=== PATIENT | male | born 1995 | race African-American/Black ===

== ENCOUNTER 2017-08-13 11:36 | Emergency (ER) | payer OTHER ==
[~2017-08-13] VITALS: Ht 180.3 cm; Wt 72.6 kg
[2017-08-13 11:57] LABS: URINE BILIRUBIN NEGATIVE (Negative); URINE BLOOD NEGATIVE (Negative); URINE CLARITY CLEAR; URINE COLOR YELLOW; URINE GLUCOSE-RANDOM* NEGATIVE (Negative); URINE KETONES NEGATIVE (Negative); URINE LEUKOCYTES-REFLEX NEGATIVE (Negative); URINE NITRITE-REFLEX NEGATIVE (Negative); URINE PROTEIN (DIPSTICK) TRACE (Negative); URINE SPECIFIC GRAVITY >= 1.030 (1.005-1.035); URINE UROBILINOGEN 0.2 E.U./dl (0.2-1.0)
== END 2017-08-13 12:21 | disposition home or self-care (01) ==
LOC: ER 11:36
PROVIDERS: Emergency Medicine
DX: Z20.2 Contact with and (suspected) exposure to infections with a predominantly sexual mode of transmission (principal)

== ENCOUNTER 2018-06-04 20:24 | Emergency (ER) | payer OTHER ==
[~2018-06-04] VITALS: Ht 170.2 cm; Wt 68.0 kg
[2018-06-04] MEDS ORDERED: NAPROSYN500 MG PO (21:53)
[2018-06-04 22:32] VITALS: BP 98/54
== END 2018-06-04 22:33 | disposition home or self-care (01) ==
LOC: ER 20:24
DX: G89.29 Other chronic pain (principal); R10.9 Unspecified abdominal pain; F32.9 Major depressive disorder, single episode, unspecified

== ENCOUNTER 2018-10-13 17:27 | Inpatient (IN) | payer OTHER ==
[~2018-10-13] VITALS: Ht 170.2 cm; Wt 68.0 kg
[~2018-10-13 17:27] MED LIST: NAPROSYN500 MG PO
[2018-10-13 18:16] VITALS: BP 134/83
--- NOTE | 2018-10-13 18:18 | NUR ---
PT HAS BEEN WAITING IN THE LOBBY FOR TRIAGE. INITIAL SET OF VS WHEN PT ARRIVED WAS TEMP: 98.6, HR: 107; BP: 136/80; SPO2: 99% ON ROOM AIR. WILL CONTINUE TO MONITOR AND INTERVENE PRN
[2018-10-13 20:13] LABS: URINE BILIRUBIN 1+ (Negative); URINE BLOOD NEGATIVE (Negative); URINE CLARITY CLEAR; URINE COLOR YELLOW; URINE GLUCOSE-RANDOM* NEGATIVE (Negative); URINE KETONES 3+ (Negative); URINE LEUKOCYTES-REFLEX NEGATIVE (Negative); URINE NITRITE-REFLEX NEGATIVE (Negative); URINE PROTEIN (DIPSTICK) 1+ (Negative); URINE SPECIFIC GRAVITY >= 1.030 (1.005-1.035); URINE UROBILINOGEN 0.2 E.U./dl (0.2-1.0)
[2018-10-13 20:34] LABS: HEMATOCRIT 46.4 % (42.0-52.0); HEMOGLOBIN 15.9 gm/dL (14.0-18.0); MCH 34.4 pg (26.0-34.0); MCHC 34.3 g/dL (28.0-37.0); MCV 100.2 fL (80.0-100.0); PLATELET COUNT 153 thou/uL (150-400); RBC 4.63 mil/uL (4.50-6.00); RDW 12.4 % (10.5-14.5); WBC 6.8 thou/uL (4.0-11.0)
[2018-10-13 20:41] LABS: CREATININE 0.8 mg/dL (0.7-1.3); POTASSIUM 4.7 mmol/L (3.5-5.1)
[2018-10-13 20:47] LABS: ALBUMIN 4.6 g/dL (3.4-5.0); TOTAL BILIRUBIN 1.1 mg/dL (<0.1-1.0); TOTAL PROTEIN 9.2 g/dL (6.4-8.2)
[2018-10-13 21:07] LABS: ABSOLUTE NEUTROPHILS 5.4 thou/uL (1.4-8.2)
[2018-10-13 21:08] LABS: ANISOCYTOSIS 1+; POLYCHROMASIA OCCASIONAL
[2018-10-13 22:16] VITALS: BP 130/87
[2018-10-13 23:34] VITALS: BP 125/79
[2018-10-14 00:15] VITALS: BP 118/74
[2018-10-14 01:19] LABS: LIPASE 1319 U/L (73-393); MAGNESIUM 1.9 mg/dL (1.8-2.4)
[2018-10-14 01:19] LABS: AMP/METHAMP Negative (Negative); BARBITURATES Negative (Negative); BENZODIAZEPINES Negative (Negative); COCAINE Negative (Negative); METHADONE Negative (Negative); OPIATES Negative (Negative); PCP Negative (Negative)
--- NOTE | 2018-10-14 02:10 | NUR ---
ADMITTED FROM ER UNDER 'S CARE. ADMITTING DX PANCREATITIS. AXOX4. CIWA SCORE AT 0 UPON ADMISSION. ABDOMEN SOFT AND NON TENDER PAIN TO RUQ WITH PALPATION. HYPOACTIVE BOWEL SOUNDS. PER PT, DIARRHEA HAS CEASED SINCE ER ADMISSION. PERSISTENT PAIN TREATED PER MD ORDER. BLOOD GLUCOSE NOTED LOW. REPORTED AT [facility] REPORTER FOR KATIE, IVF ON D5NS1/2 INITIATED. IV ATB CIPRO AND FLAGYL ADMIN. MILD ITCHYING REPORTED PER PT. REPORTED TO [employer] AND RECEIVED AN ORDER FOR BENADRYL. NO S/S ACUTE DISTRESS NOTED OR REPORTED AT THIS TIME. WILL CONT TO MONITOR FOR ANY CHANGES IN CONDITION.
[2018-10-14 03:36] VITALS: BP 109/68
[2018-10-14 04:29] LABS: HEMATOCRIT 40.1 % (42.0-52.0); HEMOGLOBIN 13.8 gm/dL (14.0-18.0)
[2018-10-14 07:36] VITALS: BP 116/77
[2018-10-14 12:07] LABS: HAV IgM AB (ANTI-HAV IgM) Negative (Negative); HEPATITIS B SURFACE AG Negative (Negative); HEPATITIS C VIRUS AB 0.1 (0.0-0.9)
--- NOTE | 2018-10-14 12:28 | NUR ---
PT ADMITTED RELATED TO ABD PAIN. CM REVIEWED CHART AND SPOKE WITH CARE TEAM. CM MET WITH PT AT BEDSIDE THIS DAY. PT IS A&O X4. CM ROLE INTRODUCED. PT INDICATED HE LIVES IN A HOUSE WITH NO STEPS TO ENTER AND NO STEPS INSIDE. 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 PT INDICATED NO DME OR HH HX. PT INDICATED HIS PCP IS DR. RICARDO HAMMONDS. PT INDICATED HE IS PATIENT PAY AND IS INTERESTED IN MEETING WITH [employer] WHILE HERE. CM TO FOLLOW INDICATED WITH DC PLANNING.
[2018-10-14 13:39] VITALS: BP 114/67
--- NOTE | 2018-10-14 14:12 | NUR ---
FAXED FACE SHEET TO [employer] TO HELP WITH MEDICAID APPLICATION.
--- NOTE | 2018-10-14 17:11 | NUR ---
NURSE NOTIFIED LORRAINE THAT PT'S SIG OTHER WHO IS STAYIONG WITH PT IN ROOM ANDDOESN;T DRIVE WASN'T ABLE TO GET ANYTHING TO EAT AND HAD ASKSED IF IT COULD BE ARRANGED FOR HER O GET A TRAY PT IS ON CLEAR LIQUIDS AND THEY WOULDN'T BE BRINGING HIM ONE. CM PROVIDED HER WITH 4 MEAL VOUCHER CARDS. IT WAS ALSO INDICATED THAT THEY WERE OUT OF FORMULA TO FEED THEIR 7 MONTH OLD. THEY INDICATED THAT THEY HAD USED POSTMATES TO ORDER AND DELIVER DIAPERS TO THE ROOM BUT THAT THEY DIDN'T HAVE ENFAMIL GENTELESSE THAT THE BABY PREFERS. LORRAINE CALLED OUTPATIENT PHARMACY TO SEE IF THEY CARRIED FORMULA FOR SALE AND THEY DON'T. LORRAINE SPOKE WITH PT AND SIG OTHER AND OFFERED TO VOUCHER A CAB RIDE FOR SIG OTHER TO GO HOME TO TAKE CARE OF THE BABY. THEY ARE GOING TO SEE IF THEY CAN GET INTO TBE HOUSE AND LET NURSE KNOW. SHE WILL ARRANGE IF NEEDED.
--- NOTE | 2018-10-14 18:47 | NUR ---
PT A&OX4, VSS, PAIN IN UPPER ABD 7-10 AT TIMES. PAIN BEING MANAGED WITH MEDICATION. PT HAD ULTRASOUND OF ABD DONE TODAY. NO SIGNS OF DISTRESS. DIET ADVANCED TO CLEAR LIQUIDS AND PT TOLERATING. WILL CONTINUE TO MONITOR.
[2018-10-14 19:06] VITALS: BP 109/69
--- NOTE | 2018-10-15 02:20 | NUR ---
ASSUMED CARE AROUND 1900. AXOX4. NO ACTIVE BLEEDING NOTED OR REPORTED AT THIS TIME. STILL ON PROTONIX DRIP ON CLEAR LIQUIDS. PERSISTENT PAIN ON RUQ ABD TX PER MD ORDER. IVF INFUSING WITH ACTIVE BLOOD GLUCOSE MONITORING. NO S/S ACUTE DISTRESS NOTED OR REPORTED AT THIS TIME. WILL CONT TO MONITOR ANY CHANGES IN CONDITION.
[2018-10-15 04:40] VITALS: BP 103/52
[2018-10-15 04:55] VITALS: BP 121/75
[2018-10-15 05:09] LABS: HEMATOCRIT 40.3 % (42.0-52.0); HEMOGLOBIN 13.6 gm/dL (14.0-18.0); MCH 33.9 pg (26.0-34.0); MCHC 33.8 g/dL (28.0-37.0); MCV 100.5 fL (80.0-100.0); RBC 4.01 mil/uL (4.50-6.00); RDW 12.4 % (10.5-14.5); WBC 4.4 thou/uL (4.0-11.0)
[2018-10-15 05:32] LABS: ALBUMIN 3.2 g/dL (3.4-5.0); CALCIUM 9.3 mg/dL (8.5-10.1); CREATININE 0.7 mg/dL (0.7-1.3); DIRECT BILIRUBIN 0.3 mg/dL (<0.1-0.3); MAGNESIUM 1.8 mg/dL (1.8-2.4); POTASSIUM 3.5 mmol/L (3.5-5.1); TOTAL PROTEIN 6.3 g/dL (6.4-8.2)
[2018-10-15 07:25] VITALS: BP 112/66
[2018-10-15 13:55] VITALS: BP 103/63
--- NOTE | 2018-10-15 18:34 | NUR ---
PT A&OX4, VSS. PAIN MEDICATION GIVEN EARLY AM, AND NO COMPLAINTS LATER IN SHIFT. PT TOLERATING SOFT DIET WELL. DENIES N/V/D, HAS TENDERNESS RIGHT UPPER ABD QUANDRANT. WILL CONTINUE TO MONITOR.
[2018-10-15 20:02] VITALS: BP 113/69
--- NOTE | 2018-10-16 03:24 | NUR ---
PATIENT AOX4 MAKES NEEDS KNOWN. PATIENT DENIED PAIN OR DISCOMFORT. PATIENT IS UP AT NEELA. FAMILY AT BEDSIDE. PATIENT DENIED NAUSEA OR VOMIT THIS SHIFT.PATIENT IN BED ASLEEP AT THIS TIME BREATHING REGULAR AND UNLABOURED.
[2018-10-16 04:48] VITALS: BP 117/71
[2018-10-16 04:54] LABS: HEMATOCRIT 38.9 % (42.0-52.0); HEMOGLOBIN 13.1 gm/dL (14.0-18.0)
[2018-10-16 08:16] VITALS: BP 117/70
--- NOTE | 2018-10-16 15:01 | NUR ---
pt stable all morning. discharge was planned for today however pt left AMA before discharge was ordered.
== END 2018-10-16 15:26 | disposition left against medical advice (07) | DRG 391 ==
LOC: ER 17:27 → 4W 21:48 → EROBS 21:48 → 4W 10-14
PROVIDERS: Emergency Medicine; Nurse Practitioner Acute Care; Nurse Practitioner Family; ADMIT Internal Medicine
DX: K52.9 Noninfective gastroenteritis and colitis, unspecified (principal); K85.20 Alcohol induced acute pancreatitis without necrosis or infection; E87.1 Hypo-osmolality and hyponatremia; K92.0 Hematemesis; E87.2 Acidosis; F17.210 Nicotine dependence, cigarettes, uncomplicated; E88.89 Other specified metabolic disorders; E16.2 Hypoglycemia, unspecified; F10.10 Alcohol abuse, uncomplicated; K70.0 Alcoholic fatty liver; F19.10 Other psychoactive substance abuse, uncomplicated; K21.9 Gastro-esophageal reflux disease without esophagitis; Z53.21 Procedure and treatment not carried out due to patient leaving prior to being seen by health care provider; Z87.828 Personal history of other (healed) physical injury and trauma; Z79.899 Other long term (current) drug therapy
CPT/HCPCS: 10045

== ENCOUNTER 2019-02-12 09:42 | Emergency (ER) | payer OTHER ==
[~2019-02-12] VITALS: Ht 175.3 cm; Wt 63.5 kg
[2019-02-12 09:48] VITALS: BP 142/85
[2019-02-12] MEDS ORDERED: MOBIC15 MG PO (11:03)
== END 2019-02-12 11:07 | disposition home or self-care (01) ==
LOC: ER 09:42
DX: S80.212A Abrasion, left knee, initial encounter (principal); S80.211A Abrasion, right knee, initial encounter; F17.210 Nicotine dependence, cigarettes, uncomplicated; V86.56XA Driver of dirt bike or motor/cross bike injured in nontraffic accident, initial encounter; Y93.89 Activity, other specified; Y92.89 Other specified places as the place of occurrence of the external cause; Y99.8 Other external cause status

== ENCOUNTER 2020-04-25 08:38 | Inpatient (IN) | payer OTHER ==
[~2020-04-25] VITALS: Ht 170.2 cm; Wt 71.2 kg
[~2020-04-25 08:38] MED LIST changes: +MOBIC15 MG PO
[2020-04-25 09:10] LABS: ABSOLUTE NEUTROPHILS 8.3 thou/uL (1.4-8.2); BASOPHILS 0.3 % (0.0-2.0); HEMATOCRIT 41.5 % (42.0-52.0); HEMOGLOBIN 13.7 gm/dL (14.0-18.0); LYMPHOCYTES 12.1 % (24.0-44.0); MCHC 32.9 g/dL (28.0-37.0); MCV 103.3 fL (80.0-100.0); MONOCYTES 7.3 % (1.0-8.0); PLATELET COUNT 193 thou/uL (150-400); POLYS 80.3 % (36.0-66.0); RBC 4.01 mil/uL (4.50-6.00); RDW 12.9 % (10.5-14.5); WBC 10.3 thou/uL (4.0-11.0)
[2020-04-25 09:54] LABS: URINE BILIRUBIN NEGATIVE (Negative); URINE BLOOD NEGATIVE (Negative); URINE CLARITY CLEAR; URINE COLOR YELLOW; URINE GLUCOSE-RANDOM* NEGATIVE (Negative); URINE KETONES 2+ (Negative); URINE LEUKOCYTES-REFLEX NEGATIVE (Negative); URINE NITRITE-REFLEX NEGATIVE (Negative); URINE PROTEIN (DIPSTICK) TRACE (Negative); URINE SPECIFIC GRAVITY >= 1.030 (1.005-1.035); URINE UROBILINOGEN 0.2 E.U./dl (0.2-1.0)
[2020-04-25 10:37] LABS: CALCIUM 9.4 mg/dL (8.5-10.1); CREATININE 0.7 mg/dL (0.7-1.3); POTASSIUM 5.1 mmol/L (3.5-5.1)
[2020-04-25 10:44] LABS: ALBUMIN 4.2 g/dL (3.4-5.0); TOTAL BILIRUBIN 0.8 mg/dL (0.2-1.0); TOTAL PROTEIN 8.2 g/dL (6.4-8.2)
[2020-04-25 13:54] LABS: FOLIC ACID 3.7 ng/mL (8.6-58.9)
[2020-04-25 14:28] VITALS: BP 158/101
[2020-04-25 17:51] VITALS: BP 158/101
[2020-04-25 18:10] VITALS: BP 108/52
--- NOTE | 2020-04-25 18:23 | NUR ---
REC PT FROM ED AT THIS TIME, A&0X4, BROUGHT IN HIS BELONGINGS AND FAN. WILL START ADMISSION AT THIS LATE POINT, UP AD NEELA. SEE SEPARATE INTERVENTIONS FOR ASSESSMENTS. PAIN CONTROL IS HIS GOAL AT THIS TIME. WILL CONTINUE TO MONITOR AND REPORT OFF TO ONCOMING SHIFT IN 20 MINUTES
[2020-04-25 18:32] VITALS: BP 150/84
[2020-04-25 20:22] VITALS: BP 132/78
--- NOTE | 2020-04-26 03:46 | NUR ---
ASSUMED PT CARE AT 1915. PT IS A&OX4. PT COMPLAINS OF ABDOMINAL PAIN AT AN 8 AND 9. PT CALLS FOR PAIN MEDICATION Q3 HOURS. PT WOKE UP AND IV WAS PULLED OUT ON ACCIDENT. I PLACED THE NEW IV 22G IN HIS RIGHT AC. FLUIDS ARE RUNNING AT 200 MLS/HR. PT IS NPO. WILL CONTINUE TO MONITOR.
[2020-04-26 06:21] LABS: ABSOLUTE NEUTROPHILS 6.8 thou/uL (1.4-8.2); BASOPHILS 0.1 % (0.0-2.0); HEMATOCRIT 42.3 % (42.0-52.0); HEMOGLOBIN 13.9 gm/dL (14.0-18.0); LYMPHOCYTES 11.8 % (24.0-44.0); MCH 33.9 pg (26.0-34.0); MCHC 32.8 g/dL (28.0-37.0); MCV 103.3 fL (80.0-100.0); MONOCYTES 11.9 % (1.0-8.0); PLATELET COUNT 160 thou/uL (150-400); POLYS 76.2 % (36.0-66.0); RBC 4.09 mil/uL (4.50-6.00); RDW 12.6 % (10.5-14.5); WBC 8.9 thou/uL (4.0-11.0)
[2020-04-26 06:34] LABS: CALCIUM 8.8 mg/dL (8.5-10.1); CREATININE 0.7 mg/dL (0.7-1.3); MAGNESIUM 1.7 mg/dL (1.8-2.4); POTASSIUM 4.2 mmol/L (3.5-5.1)
[2020-04-26 07:38] VITALS: BP 123/74
[2020-04-26 07:51] LABS: ALBUMIN 3.7 g/dL (3.4-5.0); DIRECT BILIRUBIN 0.3 mg/dL (<0.1-0.2); TOTAL PROTEIN 6.7 g/dL (6.4-8.2)
--- NOTE | 2020-04-26 09:23 | NUR ---
ASSESSMENT: CM REVIEWED CHART AND SPOKE WITH PT. PT IS ALERT AND ORIENTED X4. PT REPORTS LIVING IN A HOME WITH FAMILY. PT REPORTS BEING FULLY INDEPENDENT WITH ADLS AND AMBULATION. PT STATES HE HAS NO INSURANCE. PT REPORTS HE DOES HAVE A PCP AND REPORTS NO NEED FOR A RESOURCE PACKET. PT WAS ADMITTED FOR ACUTE PANCREATITIS LIKELY RELATED TO ALCOHOL USE. CM DISCUSSED ROLE. PT DOES NOT ANTICIPATE HAVING ANY NEEDS FROM CM, PT DECLINES THE NEED FOR ANY RESOURCES. PT WAS NPO AND BEING ADVANCED TO CLEAR LIQUIDS. CM WILL CONTINUE TO FOLLOW TO ASSIST NEEDED.
--- NOTE | 2020-04-26 09:59 | NUR ---
PT IS RESTING IN BED. ALERT XS4. TOOK AM MED AND IS CLEAR LIQUID DIET. HAS FENTANYL IV PUSH FOR PAIN AND REQUEST EVERY 3 HOURS FOR THE MED. HAS FLUIDS INFUSING. PT IS PLEASANT AND COOPERATIVE WITH CARE. CONT OF B&B.
[2020-04-26 15:47] VITALS: BP 148/86
[2020-04-26 18:44] VITALS: BP 123/82
--- NOTE | 2020-04-26 19:25 | NUR ---
PT RESTING IN BED. DIET CHANGED TO SOFT. PT STATES ABD PAIN NOT BAD IT WAS DOES NOT HURT MUCH.
--- NOTE | 2020-04-27 05:42 | NUR ---
ASSUMED PT'S CARE THIS PM SHIFT. PT ALERT AND ORIENTED. VSS ON RA. MEDS GIVEN PER EMAR. PRN PAIN MED GIVEN THIS SHIFT. PT AMBULATES INDEPENDENTLY. PT SLEPT WELL THIS SHIFT. ENCOURAGED TO CALL WHEN NEEDING ASSISTANCE. LAC IV SL. CALL LIGHT WITHIN REACH. HOURLY ROUNDINGS MADE. ANTICIPATED DC TO HOME TODAY. WILL CONTINUE TO MONITOR.
[2020-04-27 06:24] LABS: HEMATOCRIT 44.3 % (42.0-52.0); HEMOGLOBIN 14.8 gm/dL (14.0-18.0); MCH 34.1 pg (26.0-34.0); MCHC 33.5 g/dL (28.0-37.0); MCV 101.8 fL (80.0-100.0); RBC 4.35 mil/uL (4.50-6.00); RDW 12.5 % (10.5-14.5)
[2020-04-27 06:48] LABS: CALCIUM 9.7 mg/dL (8.5-10.1); CREATININE 0.6 mg/dL (0.7-1.3); POTASSIUM 3.3 mmol/L (3.5-5.1)
[2020-04-27 07:50] VITALS: BP 117/72
[2020-04-27] MEDS ORDERED: VITAMIN B-1100 M2 PO (10:31)
[2020-04-27] MEDS ORDERED: PROTONIX40 M2 PO (10:32)
[2020-04-27 10:39] VITALS: BP 117/72
[2020-04-27 10:53] VITALS: BP 117/72
--- NOTE | 2020-04-27 13:08 | NUR ---
ON-GOING ASSESSMENT: PT HAS ORDERS TO DISCHARGE HOME TODAY WITH NO NEEDS. Case closed.
[2020-04-27 13:35] VITALS: BP 117/72
== END 2020-04-27 11:12 | disposition home or self-care (01) | DRG 439 ==
LOC: ER 08:38 → EROBS 12:22 → 4S 18:25
PROVIDERS: Emergency Medicine; Internal Medicine Gastroenterology; Nurse Practitioner; ADMIT Hospitalist; ATTEND Hospitalist
DX: K85.20 Alcohol induced acute pancreatitis without necrosis or infection (principal); E87.2 Acidosis; F17.210 Nicotine dependence, cigarettes, uncomplicated; F19.10 Other psychoactive substance abuse, uncomplicated; K70.0 Alcoholic fatty liver; Z79.899 Other long term (current) drug therapy; Z71.51 Drug abuse counseling and surveillance of drug abuser
CPT/HCPCS: 10195

== ENCOUNTER 2021-02-14 23:53 | Inpatient (IN) | payer OTHER ==
[~2021-02-14] VITALS: Ht 175.3 cm; Wt 68.0 kg
[~2021-02-14 23:53] MED LIST changes: +PROTONIX40 M2 PO; +VITAMIN B-1100 M2 PO
[2021-02-14 23:54] VITALS: BP 120/83
[2021-02-15 00:28] LABS: ABSOLUTE NEUTROPHILS 5.2 thou/uL (1.4-8.2); BASOPHILS 0.5 % (0.0-2.0); EOSINOPHILS 0.3 % (0.0-3.0); HEMATOCRIT 42.2 % (42.0-52.0); HEMOGLOBIN 14.8 gm/dL (14.0-18.0); LYMPHOCYTES 21.6 % (24.0-44.0); MCH 34.9 pg (26.0-34.0); MCV 99.6 fL (80.0-100.0); MONOCYTES 16.2 % (1.0-8.0); POLYS 61.4 % (36.0-66.0); RBC 4.24 mil/uL (4.50-6.00); WBC 8.4 thou/uL (4.0-11.0)
[2021-02-15 00:59] LABS: CALCIUM 9.3 mg/dL (8.5-10.1); CREATININE 0.8 mg/dL (0.7-1.3); POTASSIUM 3.7 mmol/L (3.5-5.1)
[2021-02-15 01:05] LABS: ALBUMIN 4.5 g/dL (3.4-5.0); TOTAL BILIRUBIN 1.2 mg/dL (0.2-1.0); TOTAL PROTEIN 8.1 g/dL (6.4-8.2)
[2021-02-15 01:16] LABS: PLATELET COUNT 195 thou/uL (150-400); PLATELET ESTIMATE NORMAL
[2021-02-15 01:59] LABS: URINE BILIRUBIN 1+ (Negative); URINE BLOOD NEGATIVE (Negative); URINE CLARITY CLEAR; URINE COLOR YELLOW; URINE GLUCOSE-RANDOM* NEGATIVE (Negative); URINE KETONES 1+ (Negative); URINE LEUKOCYTES-REFLEX NEGATIVE (Negative); URINE NITRITE-REFLEX NEGATIVE (Negative); URINE PROTEIN (DIPSTICK) TRACE (Negative); URINE SPECIFIC GRAVITY 1.025 (1.005-1.035); URINE UROBILINOGEN 0.2 E.U./dl (0.2-1.0)
[2021-02-15 02:00] LABS: ICTOTEST (BILI CONFIRMATORY) Positive (Negative)
[2021-02-15 02:41] VITALS: BP 114/70
[2021-02-15 03:48] VITALS: BP 135/81
[2021-02-15 04:13] LABS: INR 0.92; PROTIME 10.1 Seconds (10.5-12.1)
[2021-02-15 04:17] VITALS: BP 131/85
--- NOTE | 2021-02-15 04:56 | NUR ---
PT ADMITTED TO THE UNIT FROM THE ED AT 0410 WITH C/O OF ABDOMINAL PAIN STARTED YESTERDAY .USES ETOH AND HAS A HISTORY OF ETOH ABUSE.PT C/O NAUSEA AND VOMITING AND ABD TENDERNESS.PT IS A/O X4.PT IS UP WITH STANDBY ASSIST DUE TO PAIN.MORPHINE ADMINISTERED WITH LITTLE OR NO RELIEF PER PT.ZOFRAN PRN ADMINISTERED FOR NAUSEA AND VOMITING.PT IS ON ROOM AIR.PT IS NPO.PT UNABLE TO SIGN CONSENT FORM DUE TO PAINS.FALL PRECAUTIONS IN PLACE.WILL ENDORSE TO DAY NURSE.WILL CONTINUE TO MONITOR PER POC
[2021-02-15 08:45] VITALS: BP 123/81
--- NOTE | 2021-02-15 11:03 | NUR ---
Assumed pt care at 7am.Pt in bed resting without c/o.Assessment completed.vss. Pt went for us lower extremities before breakfast and returned some minutes later.Am meds given and well tolerated.C/o neck pain. Too soon to give pain med.Will continue to monitor.
--- NOTE | 2021-02-15 11:13 | NUR ---
Assumed pt care at 7am.Pt in bed sleeping on and off.Assessment completed. vss.C/o abdominal pain rated 9/10.Morphine sulfate ivp given with partial relief.Pt accidentally dc'd piv.New one to be place by iv team.Will continue to monitor.
--- NOTE | 2021-02-15 14:21 | NUR ---
A #4F MIDLINE WAS PLACED PER HOSPITAL POLICY AFTER A VERBAL CONSENT WAS OBTAINED FROM THE PATIENT. RISKS OF DVT AND INFECTION WERE DISCUSSED AND HE VERBALIZED UNDERSTANDING. THE RIGHT BASILIC WAS WIDLEY PATENT. THE LINE WAS TRIMMED TO 15CM AND ADVANCED WITHOUT DIFFICULTY. THE LINE WAS SECURED AND RELEASED FOR USE
[2021-02-15 14:40] VITALS: BP 134/89
--- NOTE | 2021-02-15 16:39 | NUR ---
PT ADMITTED RELATED TO ACUTE PANCREATITIS. CM REVIEWED CHART AND SPOKE WITH CARE TEAM. CM MET WITH PT AT BEDSIDE THIS DAY. PT APPEARED TO BE A&O X4. CM ROLE INTRODUCED. PT INDICATED HE RESIDES IN A HOUSE WITH HIS MOTHER WITH 3 STEPS TO ENTER AND 3 OR 4 STEPS INSIDE. 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 PT INDICATED THAT HE LIKELY HAS INSURANCE THROUGH HIS EMPLOYER [employer]. HE IS CHECKING. PT'S PCP IS DR. RICARDO HAMMONDS. CM FOLLOWING REGARDING DC PLANNING.
[2021-02-15 20:29] VITALS: BP 124/85
--- NOTE | 2021-02-16 03:55 | NUR ---
Today this pt has been NSR in the 70s with some stated pain and nausea in which was taken care of with medications. He has been tolerating his fluids well and has otherwise been asleep for most of the night. He has been using the urinal at bedside.
[2021-02-16 04:03] LABS: ALBUMIN 3.4 g/dL (3.4-5.0); DIRECT BILIRUBIN 0.2 mg/dL (<0.1-0.2); TOTAL BILIRUBIN 0.9 mg/dL (0.2-1.0); TOTAL PROTEIN 6.8 g/dL (6.4-8.2)
--- NOTE | 2021-02-16 14:21 | NUR ---
CARE TEAM INDICATED THAT PT IS PROGRESSING TOWARD GOAL OF DISCHARGE AND TO HE WOULD BE MEDICALLY STABLE TO DC FRIDAY OR FRIDAY. PT IS ON A DIET AND TOLERATING AND HAS EXPRESSED DESIRE TO DC HOME TODAY. CARE TEAM IS TO DC PT HOME TO SELF CARE. PT HAS TRANSPORT. NO OTHER CM INTERVNENTION INDICATED. CASE CLOSED.
[2021-02-16 14:30] VITALS: BP 124/85
[2021-02-16 14:31] VITALS: BP 124/85
--- NOTE | 2021-02-16 14:46 | NUR ---
Assumed pt care at 7am.Pt in bed sleeping on and off.Assessment completed.vss. Dr Crawford and Tabitha here,order noted.Clear liq tray given at breakfast and well tolerated.Pt requested for pain shot.It was given early this shift with relief.Dc summary compile and reviewed with pt.Ivf and saline lock dc'd. At 1445,pt dc home with sister in [place].
== END 2021-02-16 16:48 | disposition home or self-care (01) | DRG 440 ==
LOC: ER 23:53 → EROBS 02-15 01:48 → 4W 02-15 01:48
PROVIDERS: Emergency Medicine; Nurse Practitioner Family; ADMIT Hospitalist; ATTEND Hospitalist
PROC: 05HB33Z Insertion of Infusion Device into Right Basilic Vein, Percutaneous Approach (ICD-10-PCS; principal; 2021-02-16)
DX: K85.20 Alcohol induced acute pancreatitis without necrosis or infection (principal); K70.10 Alcoholic hepatitis without ascites; F12.90 Cannabis use, unspecified, uncomplicated; K70.0 Alcoholic fatty liver; K70.9 Alcoholic liver disease, unspecified; G89.29 Other chronic pain; M54.9 Dorsalgia, unspecified; K21.9 Gastro-esophageal reflux disease without esophagitis; F17.210 Nicotine dependence, cigarettes, uncomplicated; R74.01 Elevation of levels of liver transaminase levels; F19.10 Other psychoactive substance abuse, uncomplicated; Z20.822 Contact with and (suspected) exposure to COVID-19; Z79.899 Other long term (current) drug therapy
CPT/HCPCS: 10045; 27000

== ENCOUNTER 2021-08-20 10:05 | Emergency (ER) | payer OTHER ==
[~2021-08-20] VITALS: Ht 175.3 cm; Wt 67.6 kg
[2021-08-20 10:08] VITALS: BP 133/87
== END 2021-08-20 11:39 | disposition home or self-care (01) ==
LOC: ER 10:05
DX: D17.21 Benign lipomatous neoplasm of skin and subcutaneous tissue of right arm (principal); F17.210 Nicotine dependence, cigarettes, uncomplicated; F10.10 Alcohol abuse, uncomplicated